=== PATIENT | female | born 1995 | race Caucasian/White ===

== ENCOUNTER 2018-02-15 18:04 | Emergency (ER) | payer SELFPAY ==
--- NOTE | 2018-02-15 18:40 | EDPHYS ---
Physician Documentation [facility] Name: Ernestina Sadler Age: 22 yrs Sex: Female : 1995 Arrival Date: 02/15/2018 Time: 18:08 Bed 27 Private MD: None, None ED Physician Yovanny Hay HPI: 02/15 18:35 This 22 yrs old Female presents to ER via Ambulatory with complaints of Flu savannah Symptoms. 18:35 This 22 yrs old Female presents to ER via Ambulatory with complaints of Flu savannah Symptoms. 18:35 The patient has shortness of breath with light activity. Onset: The symptoms/episode savannah began/occurred 2 day(s) ago. Duration: The symptoms are continuous, and are steadily getting worse. The patient's shortness of breath is aggravated by coughing, is alleviated by elevating head, rest. Severity of symptoms: At their worst the symptoms were mild in the emergency department the symptoms are unchanged. The patient reports fever, that was measured at 102 degrees Fahrenheit. 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 - Social history:: Smoking status: Patient uses tobacco products, denies chronic smoking, but will smoke occasionally. - Ebola Screening: : No symptoms or risks identified at this time. - Family history:: not pertinent. ROS: 18:35 Constitutional: Negative for fever, chills, and weight loss, Eyes: Negative for injury, savannah pain, redness, and discharge, ENT: Negative for injury, pain, and discharge, Neck: Negative for injury, pain, and swelling, Cardiovascular: Negative for chest pain, palpitations, and edema, Abdomen/GI: Negative for abdominal pain, nausea, vomiting, diarrhea, and constipation, Back: Negative for injury and pain, : Negative for injury, bleeding, discharge, and swelling, MS/Extremity: Negative for injury and deformity, Skin: Negative for injury, rash, and discoloration, Neuro: Negative for headache, weakness, numbness, tingling, and seizure, Psych: Negative for depression, anxiety, suicide ideation, homicidal ideation, and hallucinations, Allergy/Immunology: Negative for hives, rash, and allergies, Endocrine: Negative for neck swelling, polydipsia, polyuria, polyphagia, and marked weight changes, Hematologic/Lymphatic: Negative for swollen nodes, abnormal bleeding, and unusual bruising. 18:35 Respiratory: Positive for cough, with no reported sputum. Exam: 18:35 Head/Face: Normocephalic, atraumatic. Eyes: Pupils equal round and reactive to light, savannah extra-ocular motions intact. Lids and lashes normal. Conjunctiva and sclera are non-icteric and not injected. Cornea within normal limits. Periorbital areas with no swelling, redness, or edema. ENT: Nares patent. No nasal discharge, no septal abnormalities noted. Tympanic membranes are normal and external auditory canals are clear. Oropharynx with no redness, swelling, or masses, exudates, or evidence of obstruction, uvula midline. Mucous membranes moist. Neck: Trachea midline, no thyromegaly or masses palpated, and no cervical lymphadenopathy. Supple, full range of motion without nuchal rigidity, or vertebral point tenderness. No Meningismus. Chest/axilla: Normal chest wall appearance and motion. Nontender with no deformity. No lesions are appreciated. Cardiovascular: Regular rate and rhythm with a normal S1 and S2. No gallops, murmurs, or rubs. Normal PMI, no JVD. No pulse deficits. Respiratory: Lungs have equal breath sounds bilaterally, clear to auscultation and percussion. No rales, rhonchi or wheezes noted. No increased work of breathing, no retractions or nasal flaring. Abdomen/GI: Soft, non-tender, with normal bowel sounds. No distension or tympany. No guarding or rebound. No evidence of tenderness throughout. Back: No spinal tenderness. No costovertebral tenderness. Full range of motion. Skin: Warm, dry with normal turgor. Normal color with no rashes, no lesions, and no evidence of cellulitis. MS/ Extremity: Pulses equal, no cyanosis. Neurovascular intact. Full, normal range of motion. Neuro: Awake and alert, GCS 15, oriented to person, place, time, and situation. Cranial nerves II-XII grossly intact. Motor strength 5/5 in all extremities. Sensory grossly intact. Cerebellar exam normal. Normal gait. Psych: Awake, alert, with orientation to person, place and time. Behavior, mood, and affect are within normal limits. 18:35 Constitutional: The patient appears febrile. 18:35 Neck: ROM/movement: is normal, no acute changes, Meningeal signs: are not present, Kernig's sign is negative, Brudzinski's sign is negative. 18:35 Respiratory: the patient does not display signs of respiratory distress, Respirations: normal, Breath sounds: are clear throughout. Vital Signs: 18:35 BP 125 / 90; Pulse 88; Resp 17; Temp 98.3; Pulse Ox 99% ; Weight 76.2 kg; Height 5 ft. kr2 4 in. (162.56 cm); Pain 3/10; 18:35 Body Mass Index 28.84 (76.20 kg, 162.56 cm) kr2 MDM: 18:20 Patient medically screened. [facility] 18:38 Data reviewed: vital signs, nurses notes. [facility] Administered Medications: 18:50 Drug: Zithromax 500 mg Route: PO; kr2 18:55 Follow up: Response: Medication administered at discharge. kr2 18:50 Drug: Tamiflu 75 mg Route: PO; kr2 19:02 Follow up: Response: Medication administered at discharge. 2 Disposition: 02/15/18 18:39 Discharged to Home. Impression: Fever, unspecified, Acute upper respiratory infection, unspecified. - Condition is Stable. - Discharge Instructions: Fever, Adult, Upper Respiratory Infection, Adult, Cool Mist Vaporizer, Cough, Adult, [id number], Cough, Adult. - Prescriptions for Bromfed DM 2- 30-10 mg/5 mL Oral syrup - take 10 milliliter by ORAL route every 4 hours; 160 milliliter. Zithromax Z- Tj 250 mg Oral Tablet - take 1 tablet by ORAL route as directed for 5 days Day 1 - take two (2) tablets one time. Day 2, 3, 4 , 5 take one (1) tablet once daily.; 6 tablet. Tamiflu 75 mg Oral Capsule - take 1 tablet by ORAL route every 12 hours for 5 days; 10 tablet. - Medication Reconciliation Form, Thank You Letter, Antibiotic Education, Prescription Opioid Use, Work release form form. - Follow up: Yovanny Hay MD; When: 2 - 3 days; Reason: Recheck today's complaints, Continuance of care, Re-evaluation by your physician. - Problem is new. - Symptoms have improved. Signatures: Dispatcher [employer] Yovanny Russo MD MD cha Reaves, Karey, RN RN kr2 Corrections: (The following items were deleted from the chart) 19:02 18:39 02/15/2018 18:39 Discharged to Home. Impression: Fever, unspecified; Acute upper kr2 respiratory infection, unspecified. Condition is Stable. Forms are Medication Reconciliation Form, Thank You Letter, Antibiotic Education, Prescription Opioid Use. Follow up: Dr. Yovanny Hay; When: 2 - 3 days; Reason: Recheck today's complaints, Continuance of care, Re-evaluation by your physician. Problem is new. Symptoms have improved. savannah
--- NOTE | 2018-02-15 18:40 | ER ---
Nurse's Notes [facility] Name: Ernestina Sadler Age: 22 yrs Sex: Female : 1995 Arrival Date: 02/15/2018 Time: 18:08 Bed 27 Private MD: None, None Diagnosis: Fever, unspecified;Acute upper respiratory infection, unspecified Presentation: 02/15 18:32 Presenting complaint: Patient states: she woke up with body aches, ear ache, sore kr2 throat, runny nose and cough this morning. Transition of care: patient was not received from another setting of care. Onset of symptoms was February 14, 2018. Risk Assessment: Do you want to hurt yourself or someone else? Patient reports no desire to harm self or others. Initial Sepsis Screen: Does the patient meet any 2 criteria? No. Patient's initial sepsis screen is negative. Does the patient have a suspected source of infection? No. Patient's initial sepsis screen is negative. Care prior to arrival: None. 18:32 Method Of Arrival: Ambulatory [facility] 18:32 Acuity: JOHNNY 5 kr2 Triage Assessment: 18:37 General: Appears in no apparent distress. uncomfortable, well groomed, well developed, kr2 well nourished, Behavior is calm, cooperative, appropriate for age. Pain: Complains of pain in right ear, throat Pain currently is 3 out of 10 on a pain scale. Quality of pain is described as aching, tender, Is continuous, Alleviated by nothing. EENT: Nares with drainage noted bilaterally Oral mucosa is moist. Reports pain in right ear. Neuro: Level of Consciousness is awake, alert, obeys commands, Oriented to person, place, time, situation, Appropriate for age. Cardiovascular: Capillary refill < 3 seconds in bilateral fingers Patient's skin is warm and dry. Respiratory: Reports cough that is non-productive, Airway is patent Respiratory effort is even, unlabored, Respiratory pattern is regular, symmetrical. GI: Patient currently denies nausea. : Denies burning with urination. Derm: Skin is intact, is healthy with good turgor, Skin is pink, warm \T\ dry. Musculoskeletal: Circulation, motion, and sensation intact. 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 - Social history:: Smoking status: Patient uses tobacco products, denies chronic smoking, but will smoke occasionally. - Ebola Screening: : No symptoms or risks identified at this time. - Family history:: not pertinent. Screenin:35 Abuse screen: Denies threats or abuse. Denies injuries from another. Nutritional kr2 screening: No deficits noted. Tuberculosis screening: No symptoms or risk factors identified. Fall Risk None identified. Assessment: 18:42 Reassessment: See triage assessment. Per Dr. Hay, dylan flu swab, lab notified kr2 and no swab done. Vital Signs: 18:35 BP 125 / 90; Pulse 88; Resp 17; Temp 98.3; Pulse Ox 99% ; Weight 76.2 kg; Height 5 ft. kr2 4 in. (162.56 cm); Pain 3/10; 18:35 Body Mass Index 28.84 (76.20 kg, 162.56 cm) kr2 ED Course: 18:08 Patient arrived in ED. mr 18:09 None, None is Private Physician. mr 18:20 Yovanny Hay MD is Attending Physician. savannah 18:23 Cass Weems, JANICE is Primary Nurse. kr2 18:34 Triage completed. kr2 18:38 Yovanny Hay MD is Referral Physician. savannah 18:40 Arm band placed on. kr2 18:40 Patient has correct armband on for positive identification. Bed in low position. Call kr2 light in reach. Side rails up X 1. Door closed. Head of bed elevated. 18:40 No provider procedures requiring assistance completed. Patient did not have IV access kr2 during this emergency room visit. Administered Medications: 18:50 Drug: Zithromax 500 mg Route: PO; kr2 18:55 Follow up: Response: Medication administered at discharge. kr2 18:50 Drug: Tamiflu 75 mg Route: PO; kr2 19:02 Follow up: Response: Medication administered at discharge. kr2 Outcome: 18:39 Discharge ordered by . savannah 18:41 Condition: good kr2 18:53 Discharged to home ambulatory. kr2 18:53 Discharge instructions given to patient, Instructed on discharge instructions, follow up and referral plans. medication usage, Demonstrated understanding of instructions, follow-up care, medications, Prescriptions given X 3. 19:02 Patient left the ED. kr2 Signatures: Yovanny Hay MD MD cha Rivera, Mary mr Reaves, Karey, RN RN kr2 Corrections: (The following items were deleted from the chart) 19:02 18:54 Response: No adverse reaction; Medication administered at discharge. kr2 kr2
[2018-02-15] MEDS ORDERED: OSELTAMIVIR 75 MG CAP ONE (18:52)
[2018-02-15] MEDS ORDERED: AZITHROMYCIN 250 MG TAB ONE (18:53)
== END 2018-02-15 19:02 | disposition home or self-care (01) ==
LOC: ER 18:04
DX: J06.9 Acute upper respiratory infection, unspecified (principal); Z72.0 Tobacco use
CPT/HCPCS: 99283

== ENCOUNTER 2018-06-25 17:40 | Emergency (ER) | payer SELFPAY ==
--- NOTE | 2018-06-25 18:59 | ER ---
Nurse's Notes [facility] Name: Ernestina Sadler Age: 22 yrs Sex: Female : 1995 Arrival Date: 06/25/2018 Time: 17:53 Bed Treatment Private MD: Diagnosis: Acute upper respiratory infection, unspecified Presentation: 06/25 17:53 Presenting complaint: Patient states: erlin ear pain, cough, congestion, yellow mucous, ch started 4-5 days ago, sore throat as well. Transition of care: patient was not received from another setting of care. Onset of symptoms was June 20, 2018. Risk Assessment: Do you want to hurt yourself or someone else?. Initial Sepsis Screen: Does the patient meet any 2 criteria? No. Patient's initial sepsis screen is negative. Does the patient have a suspected source of infection? No. Patient's initial sepsis screen is negative. Care prior to arrival: Medication(s) given: amoxicillin. 17:53 Method Of Arrival: Ambulatory 17:53 Acuity: JOHNNY 4 Triage Assessment: 17:54 General: Appears in no apparent distress. comfortable, Behavior is calm, cooperative, ch appropriate for age. Pain: Complains of pain in throat Pain currently is 7 out of 10 on a pain scale. EENT: Reports nasal congestion nasal discharge pain in left ear and right ear when swallowing. Respiratory: Airway is patent Respiratory effort is even, unlabored. 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 - Social history:: Smoking status: Patient uses tobacco products, denies chronic smoking, but will smoke occasionally, Patient uses alcohol, weekly. Patient/guardian denies using street drugs. - Ebola Screening: : Patient negative for fever greater than or equal to 101.5 degrees Fahrenheit, and additional compatible Ebola Virus Disease symptoms Patient denies exposure to infectious person Patient denies travel to an Ebola-affected area in the 21 days before illness onset No symptoms or risks identified at this time. Screenin:14 Abuse screen: Denies threats or abuse. Denies injuries from another. Nutritional ss screening: No deficits noted. Tuberculosis screening: Never had TB. Fall Risk None identified. Assessment: 18:18 General: Appears in no apparent distress. comfortable, Behavior is calm, cooperative. ss Pain: Complains of pain in right ear and left ear and throat Pain currently is 7 out of 10 on a pain scale. Quality of pain is described as aching, tender. Neuro: Level of Consciousness is awake, alert, obeys commands, Oriented to person, place, time, situation. Cardiovascular: Capillary refill < 3 seconds is brisk in bilateral fingers. Respiratory: Airway is patent Respiratory effort is even, unlabored, Respiratory pattern is regular, symmetrical. GI: Patient currently denies diarrhea, nausea, vomiting. EENT: Nares are clear Oral mucosa is moist. Throat is clear. Derm: Skin is intact, is healthy with good turgor, Skin is dry, Skin is pink, warm \T\ dry. normal. Musculoskeletal: Circulation, motion, and sensation intact. Range of motion: intact in all extremities. Vital Signs: 17:54 BP 133 / 85; Pulse 71; Resp 16; Temp 98.3; Pulse Ox 99% on R/A; Weight 83.91 kg; Height ch 5 ft. 4 in. (162.56 cm); Pain 7/10; 17:54 Body Mass Index 31.75 (83.91 kg, 162.56 cm) ED Course: 17:53 Patient arrived in ED. 17:54 Triage completed. 17:54 Arm band placed on left wrist. Patient placed in waiting room. flu and strep. 17:56 Topher Mcconnell PA is PHCP. [facility] 17:56 Yovanny Hay MD is Attending Physician. jr8 18:14 Patient has correct armband on for positive identification. Bed in low position. Call ss light in reach. 18:14 No provider procedures requiring assistance completed. Patient did not have IV access ss during this emergency room visit. 19:31 Lexi Peterson, JANICE is Primary Nurse. ss Administered Medications: No medications were administered Outcome: 18:58 Discharge ordered by . kathy 19:31 Discharged to home ambulatory. ss 19:31 Condition: good 19:31 Discharge instructions given to patient, family, Instructed on discharge instructions, follow up and referral plans. medication usage, Demonstrated understanding of instructions, follow-up care, medications, Prescriptions given X 3. 19:32 Patient left the ED. Signatures: Xiao Varela RN RN Lexi Peterson RN RN Topher Mcconnell PA PA jr8 Corrections: (The following items were deleted from the chart) 17:54 17:53 Care prior to arrival: None. [facility]
--- NOTE | 2018-06-25 18:59 | EDPHYS ---
Physician Documentation [facility] Name: Ernestina Sadler Age: 22 yrs Sex: Female : 1995 Arrival Date: 06/25/2018 Time: 17:53 Bed Treatment Private MD: ED Physician Yovanny Hay HPI: 06/25 18:55 This 22 yrs old Female presents to ER via Ambulatory with complaints of Ear jr8 Pain. 18:55 Patient stated that for the past 5 days she has had sinus congestion, cough, body jr8 aches, ear pain, soar throat. Not getting any better with OTC medicine . Severity of symptoms: At their worst the symptoms were moderate in the emergency department the symptoms are unchanged. The patient has not experienced similar symptoms in the past. The patient has not recently seen a physician. 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 - Social history:: Smoking status: Patient uses tobacco products, denies chronic smoking, but will smoke occasionally, Patient uses alcohol, weekly. Patient/guardian denies using street drugs. - Ebola Screening: : Patient negative for fever greater than or equal to 101.5 degrees Fahrenheit, and additional compatible Ebola Virus Disease symptoms Patient denies exposure to infectious person Patient denies travel to an Ebola-affected area in the 21 days before illness onset No symptoms or risks identified at this time. ROS: 18:55 Eyes: Negative for injury, pain, redness, and discharge, Neck: Negative for injury, jr8 pain, and swelling, Cardiovascular: Negative for chest pain, palpitations, and edema, Abdomen/GI: Negative for abdominal pain, nausea, vomiting, diarrhea, and constipation, Back: Negative for injury and pain, MS/Extremity: Negative for injury and deformity, Skin: Negative for injury, rash, and discoloration, Neuro: Negative for headache, weakness, numbness, tingling, and seizure. 18:55 Constitutional: Positive for body aches, chills. 18:55 ENT: Positive for rhinorrhea, sinus congestion, sinus pain, sore throat. 18:55 Respiratory: Positive for cough, Negative for dyspnea on exertion, shortness of breath, sputum production, wheezing. Exam: 18:55 Eyes: Pupils equal round and reactive to light, extra-ocular motions intact. Lids and jr8 lashes normal. Conjunctiva and sclera are non-icteric and not injected. Cornea within normal limits. Periorbital areas with no swelling, redness, or edema. ENT: Nares patent. Mild erythema to bilateral turbinates with clear rhinorrhea. No septal abnormalities noted. Tympanic membranes are normal and external auditory canals are clear. Oropharynx with no redness, swelling, or masses, exudates, or evidence of obstruction, uvula midline. Mucous membranes moist. Neck: Trachea midline, no thyromegaly or masses palpated, and no cervical lymphadenopathy. Supple, full range of motion without nuchal rigidity, or vertebral point tenderness. No Meningismus. Cardiovascular: Regular rate and rhythm with a normal S1 and S2. No gallops, murmurs, or rubs. Normal PMI, no JVD. No pulse deficits. Respiratory: Lungs have equal breath sounds bilaterally, clear to auscultation and percussion. No rales, rhonchi or wheezes noted. No increased work of breathing, no retractions or nasal flaring. Abdomen/GI: Soft, non-tender, with normal bowel sounds. No distension or tympany. No guarding or rebound. No evidence of tenderness throughout. Back: No spinal tenderness. No costovertebral tenderness. Full range of motion. Skin: Warm, dry with normal turgor. Normal color with no rashes, no lesions, and no evidence of cellulitis. MS/ Extremity: Pulses equal, no cyanosis. Neurovascular intact. Full, normal range of motion. Neuro: Awake and alert, GCS 15, oriented to person, place, time, and situation. Cranial nerves II-XII grossly intact. Motor strength 5/5 in all extremities. Sensory grossly intact. Cerebellar exam normal. Normal gait. Vital Signs: 17:54 BP 133 / 85; Pulse 71; Resp 16; Temp 98.3; Pulse Ox 99% on R/A; Weight 83.91 kg; Height ch 5 ft. 4 in. (162.56 cm); Pain 7/10; 17:54 Body Mass Index 31.75 (83.91 kg, 162.56 cm) MDM: 18:03 Patient medically screened. [facility] 18:55 Data reviewed: vital signs, nurses notes, lab test result(s), and as a result, I will jr8 discharge patient. Data interpreted: Pulse oximetry: on room air is 99 %. Interpretation: normal. Counseling: I had a detailed discussion with the patient and/or guardian regarding: the historical points, exam findings, and any diagnostic results supporting the discharge/admit diagnosis, lab results, the need for outpatient follow up, a family practitioner, to return to the emergency department if symptoms worsen or persist or if there are any questions or concerns that arise at home. 06/25 17:56 Order name: Flu; Complete Time: 18:55 06/25 17:56 Order name: Strep; Complete Time: 18:55 06/25 18:54 Order name: Throat Culture EDMS Administered Medications: No medications were administered Disposition: 06/25/18 18:58 Discharged to Home. Impression: Acute upper respiratory infection, unspecified. - Condition is Stable. - Discharge Instructions: Upper Respiratory Infection, Adult. - Prescriptions for Prednisone 20 mg Oral Tablet - take 1 tablet by ORAL route once daily for 5 days; 5 tablet. Zithromax Z- Tj 250 mg Oral Tablet - take 1 tablet by ORAL route as directed for 5 days Day 1 - take two (2) tablets one time. Day 2, 3, 4 , 5 take one (1) tablet once daily.; 6 tablet. Guaifenesin AC 10- 100 mg/5 mL Oral Liquid - take 10 milliliter by ORAL route every 4 hours As needed; 240 milliliter. - Work release form, Medication Reconciliation Form, Thank You Letter, Antibiotic Education, Prescription Opioid Use form. - Follow up: Private Physician; When: 5 - 6 days; Reason: Recheck today's complaints, Continuance of care, Re-evaluation by your physician. - Problem is new. - Symptoms have improved. Addendum: 06/27/2018 09:28 Co-signature as Attending Physician, Yovanny Hay MD I agree with the assessment and c mcmullen plan of care. Signatures: Dispatcher [employer] EDXiao Rojo RN RN ch Anderson, Corey, MD MD cha Smirch, Shelby, RN RN Topher Mcconnell PA PA jr8 Corrections: (The following items were deleted from the chart) 06/25 19:32 18:58 06/25/2018 18:58 Discharged to Home. Impression: Acute upper respiratory ss infection, unspecified. Condition is Stable. Forms are Medication Reconciliation Form, Thank You Letter, Antibiotic Education, Prescription Opioid Use. Follow up: Private Physician; When: 5 - 6 days; Reason: Recheck today's complaints, Continuance of care, Re-evaluation by your physician. Problem is new. Symptoms have improved. jr8
== END 2018-06-25 19:32 | disposition home or self-care (01) ==
LOC: ER 17:40
DX: J06.9 Acute upper respiratory infection, unspecified (principal); Z91.040 Latex allergy status; Z91.048 Other nonmedicinal substance allergy status
CPT/HCPCS: 87070; 87081; 87804; 99282

== ENCOUNTER 2020-03-24 12:40 | Emergency (ER) | payer SELFPAY ==
[2020-03-24] MEDS ORDERED: BENZONATATE 100 MG CAP PO ONE (14:22)
--- NOTE | 2020-03-24 14:46 | EDPHYS ---
Physician Documentation [facility] Name: Ernestina Sadler Age: 24 yrs Sex: Female : 1995 Arrival Date: 03/24/2020 Time: 12:44 Bed 5 Private MD: ED Physician Jay Emanuel HPI: 03/24 13:30 This 24 yrs old Female presents to ER via Ambulatory with complaints of Sore cp Throat, Cough. 13:30 The patient presents with sore throat. Onset: The symptoms/episode began/occurred cp yesterday. Severity of symptoms: in the emergency department the symptoms are unchanged. Associated signs and symptoms: Pertinent positives: cough, Pertinent negatives diarrhea, dysphagia, fever, vomiting. 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 - Social history:: Smoking status: Patient denies any tobacco usage or history of. ROS: 13:35 Constitutional: Negative for fever, poor PO intake. cp 13:35 Eyes: Negative for injury, pain, redness, and discharge. cp 13:35 ENT: Positive for ear pain, sore throat, Negative for drainage from ear(s), difficulty swallowing, difficulty handling secretions. 13:35 Respiratory: Positive for cough, Negative for shortness of breath, wheezing. 13:35 Abdomen/GI: Negative for abdominal pain, nausea, vomiting, and diarrhea. 13:35 Neuro: Negative for headache. 13:35 All other systems are negative. Exam: 13:40 Constitutional: The patient appears in no acute distress, alert, awake, non-toxic, well cp developed, well nourished. 13:40 Head/Face: Normocephalic, atraumatic. cp 13:40 Eyes: Periorbital structures: appear normal, Conjunctiva: normal, no exudate, no injection, Lids and lashes: appear normal, bilaterally. 13:40 ENT: External ear(s): are unremarkable, Ear canal(s): are normal, clear, TM's: dullness, bilaterally, Nose: is normal, Mouth: Lips: moist, Oral mucosa: moist, Posterior pharynx: Airway: no evidence of obstruction, patent, Tonsils: no enlargement, no exudate, swelling, is not appreciated, erythema, that is mild, exudate, is not appreciated. 13:40 Neck: ROM/movement: is normal, is supple, no meningismus, no nuchal rigidity, Lymph nodes: no appreciated lymphadenopathy. 13:40 Chest/axilla: Inspection: normal. 13:40 Cardiovascular: Rate: normal. 13:40 Respiratory: the patient does not display signs of respiratory distress, Respirations: normal, no use of accessory muscles, no retractions, labored breathing, is not present, Breath sounds: decreased breath sounds, are not appreciated, stridor, wheezing: is not appreciated. 13:40 Abdomen/GI: Exam negative for discomfort, distension, guarding, Inspection: abdomen appears normal. Vital Signs: 13:14 BP 113 / 77; Pulse 88; Resp 16 S; Temp 97.9(TE); Pulse Ox 100% on R/A; Weight 81.65 kg ca1 (R); Height 5 ft. 4 in. (162.56 cm) (R); Pain 4/10; 14:05 BP 124 / 81; Pulse 83; Resp 16 S; Pulse Ox 100% on R/A; ca1 13:14 Body Mass Index 30.90 (81.65 kg, 162.56 cm) ca1 MDM: 14:00 Differential diagnosis: apthous stomatitis, group A strep tonsillitis, peritonsillar cp abscess pharyngitis, retropharyngeal abcess. 14:44 Patient medically screened. cp 14:45 Data reviewed: vital signs, nurses notes, lab test result(s), and as a result, I will cp discharge patient. 14:45 Counseling: I had a detailed discussion with the patient and/or guardian regarding: the cp historical points, exam findings, and any diagnostic results supporting the discharge/admit diagnosis, lab results, to return to the emergency department if symptoms worsen or persist or if there are any questions or concerns that arise at home. 03/24 13:21 Order name: Flu ca1 03/24 13:21 Order name: Strep ca1 03/24 13:21 Order name: COVID-19 ca1 03/24 14:27 Order name: Throat Culture EDMS Administered Medications: 14:09 Drug: Tessalon Perle 200 mg Route: PO; ca1 14:32 Follow up: Response: No adverse reaction sv Disposition: 03/25 09:31 Co-signature as Attending Physician, Jay Emanuel MD. rn Disposition: 03/24/20 14:45 Discharged to Home. Impression: Acute upper respiratory infection, unspecified. - Condition is Stable. - Discharge Instructions: Upper Respiratory Infection, Adult, COVID-19. - Prescriptions for Tessalon Perles 100 mg Oral Capsule - take 2 capsule by ORAL route every 8 hours As needed; 20 capsule. - Work release form, Medication Reconciliation Form, Thank You Letter, Antibiotic Education, Prescription Opioid Use form. - Follow up: Private Physician; When: 2 - 3 days; Reason: Worsening of condition. - Problem is new. - Symptoms have improved. Signatures: Dispatcher [employer] EDNV Shauna Hernandez RN RN Jay Mai MD MD rn Page, Corey, PA PA cp Tracy Colvin RN RN ca1 Corrections: (The following items were deleted from the chart) 03/24 14:55 14:45 03/24/2020 14:45 Discharged to Home. Impression: Acute upper respiratory sv infection, unspecified. Condition is Stable. Forms are Medication Reconciliation Form, Thank You Letter, Antibiotic Education, Prescription Opioid Use. Follow up: Private Physician; When: 2 - 3 days; Reason: Worsening of condition. Problem is new. Symptoms have improved. cp
--- NOTE | 2020-03-24 14:46 | ER ---
Nurse's Notes [facility] Name: Ernestina Sadler Age: 24 yrs Sex: Female : 1995 Arrival Date: 03/24/2020 Time: 12:44 Bed 5 Private MD: Diagnosis: Acute upper respiratory infection, unspecified Presentation: 03/24 13:14 Chief complaint: Patient states: Started coughing today, throat started hurting ca1 yesterday. When I cough, it hurts my chest and throat, I almost throw up from coughing at work today. Denies fever. Coronavirus screen: Client denies travel out of the [place] in the last 14 days. cough unrelated to allergies, shortness of breath, Client presents with at least one sign or symptom that may indicate coronavirus-19. Standard/surgical mask placed on the client. Provider contacted for isolation considerations. The client reports previous COVID testing was negative. Date of collection: December 2019. Ebola Screen: Patient negative for fever greater than or equal to 101.5 degrees Fahrenheit, and additional compatible Ebola Virus Disease symptoms Patient denies exposure to infectious person. Patient denies travel to an Ebola-affected area in the 21 days before illness onset. No symptoms or risks identified at this time. Initial Sepsis Screen: Does the patient meet any 2 criteria? No. Patient's initial sepsis screen is negative. Does the patient have a suspected source of infection? No. Patient's initial sepsis screen is negative. Risk Assessment: Do you want to hurt yourself or someone else? Patient reports no desire to harm self or others. Onset of symptoms was March 24, 2020. 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 - Social history:: Smoking status: Patient denies any tobacco usage or history of. Screenin:01 Abuse screen: Denies threats or abuse. Denies injuries from another. Nutritional ca1 screening: No deficits noted. Tuberculosis screening: No symptoms or risk factors identified. Fall Risk None identified. Assessment: 14:01 Reassessment: Pt seen in triage with ANU Arellano. General: Appears in no apparent ca1 distress. comfortable, Behavior is calm, cooperative, appropriate for age. Pain: Complains of pain in throat. Neuro: Level of Consciousness is awake, alert, obeys commands, Oriented to person, place, time, situation. Cardiovascular: Heart tones S1 S2 present Capillary refill < 3 seconds Patient's skin is warm and dry. Respiratory: Airway is patent Respiratory effort is even, unlabored, Respiratory pattern is regular, symmetrical, Breath sounds are clear bilaterally. EENT: Throat is clear is pink. Derm: Skin is intact, is healthy with good turgor, Skin is pink, warm \T\ dry. Musculoskeletal: Circulation, motion, and sensation intact. Capillary refill < 3 seconds. 14:32 Reassessment: Patient appears in no apparent distress at this time. No changes from sv previously documented assessment. Patient and/or family updated on plan of care and expected duration. Pain level reassessed. Patient is alert, oriented x 3, equal unlabored respirations, skin warm/dry/pink. Vital Signs: 13:14 BP 113 / 77; Pulse 88; Resp 16 S; Temp 97.9(TE); Pulse Ox 100% on R/A; Weight 81.65 kg ca1 (R); Height 5 ft. 4 in. (162.56 cm) (R); Pain 4/10; 14:05 BP 124 / 81; Pulse 83; Resp 16 S; Pulse Ox 100% on R/A; ca1 13:14 Body Mass Index 30.90 (81.65 kg, 162.56 cm) ca1 ED Course: 12:44 Patient arrived in ED. ds1 13:16 Triage completed. ca1 13:16 Arm band placed on right wrist. ca1 13:30 Yovanyn Andino PA is PHCP. cp 13:32 Yovanny Andino PA is PHCP. cp 13:32 Jay Emanuel MD is Attending Physician. cp 13:32 Flu Sent. ca1 13:32 Strep Sent. ca1 13:32 COVID-19 Sent. ca1 14:01 Patient has correct armband on for positive identification. ca1 14:01 No provider procedures requiring assistance completed. Patient did not have IV access ca1 during this emergency room visit. 14:29 Shauna Hernandez, RN is Primary Nurse. sv 14:30 Throat Culture Sent. sv Administered Medications: 14:09 Drug: Tessalon Perle 200 mg Route: PO; ca1 14:32 Follow up: Response: No adverse reaction sv Outcome: 14:45 Discharge ordered by MD. cp 14:55 Patient left the ED. sv 14:55 Discharged to home ambulatory. sv 14:55 Condition: stable 14:55 Discharge instructions given to patient, Instructed on discharge instructions, follow up and referral plans. medication usage, Demonstrated understanding of instructions, follow-up care, medications, Prescriptions given X 1. Addendum: 03/26/2020 17:42 Addendum: COVID-19 Result: Negative result given to RN to notify pt. Notified pt of a a5 negative COVID 19 swab results. Pt advised that even with a negative test result they should remain in isolation until symptom free for 3 days without medication. Pt also advised to return to the ED for worsening symptoms. Signatures: hSauna Hernandez, RN RN Solange Triplett ds1 Lora Armstrong, RN RN aa5 Yovanny Andino PA PA Tracy Millard RN RN ca1
[2020-03-28 10:21] VITALS: TEMP 97.9; O2SAT 100
[2020-03-28 10:23] VITALS: BP 124/81
== END 2020-03-24 14:55 | disposition home or self-care (01) ==
LOC: ER 12:40
DX: J06.9 Acute upper respiratory infection, unspecified (principal); Z20.828 Contact with and (suspected) exposure to other viral communicable diseases; Z91.040 Latex allergy status; Z91.048 Other nonmedicinal substance allergy status
CPT/HCPCS: 87070; 87081; 87804; 99283; U0002

== ENCOUNTER 2020-05-03 11:57 | Emergency (ER) | payer SELFPAY ==
--- NOTE | 2020-05-03 15:09 | RAD REPORT ---
EXAM DESCRIPTION: RAD - Chest Single View - 05/03/2020 2:59 pm CLINICAL HISTORY: Pain;Cough Chest pain. COMPARISON: No comparisons FINDINGS: Portable technique limits examination quality. The lungs are grossly clear. The heart is normal in size. No displaced fractures. IMPRESSION: No acute intrathoracic process suspected.
--- NOTE | 2020-05-03 15:14 | ER ---
Nurse's Notes [facility] Name: Ernestina Sadler Age: 24 yrs Sex: Female : 1995 Arrival Date: 05/03/2020 Time: 12:02 Bed 24 Private MD: Diagnosis: Pleurisy Presentation: 05/03 12:15 Chief complaint: Patient states: Left mid back pain with deep inspiration for 1 week. ll1 Cough since March, she came here for. Covid negative last visit. Coronavirus screen: Client denies travel out of the [place] in the last 14 days. cough unrelated to allergies, Client presents with at least one sign or symptom that may indicate coronavirus-19. Standard/surgical mask placed on the client. Ebola Screen: Patient denies travel to an Ebola-affected area in the 21 days before illness onset. Initial Sepsis Screen: Does the patient meet any 2 criteria? No. Patient's initial sepsis screen is negative. Does the patient have a suspected source of infection? Yes: Productive cough/pneumonia. Risk Assessment: Do you want to hurt yourself or someone else? Patient reports no desire to harm self or others. Onset of symptoms was March 23, 2020. 12:15 Method Of Arrival: Ambulatory ll1 12:15 Acuity: JOHNNY 4 ll1 Triage Assessment: 12:17 General: Appears in no apparent distress. Behavior is calm, cooperative, appropriate ll1 for age. General: intermittent pain to left mid back with deep inspiration, no pain at this time. . Pain: Denies pain. Neuro: No deficits noted. Cardiovascular: No deficits noted. Respiratory: Reports pain with respiration Airway is patent Trachea midline Respiratory effort is even, unlabored, Respiratory pattern is regular, symmetrical, the patient has mild shortness of breath. Musculoskeletal: Circulation, motion, and sensation intact. Capillary refill < 3 seconds, Range of motion: intact in all extremities, Reports pain in L mid back with inspiration. Historical: - Allergies: 12:15 Latex, Natural Rubber; ll1 - PMHx: 12:15 None; ll1 - PSHx: 12:15 None; ll1 - Immunization history:: Flu vaccine is not up to date. - Social history:: Smoking status: Patient denies any tobacco usage or history of. Screenin:00 Abuse screen: Denies threats or abuse. Nutritional screening: No deficits noted. vg1 Tuberculosis screening: No symptoms or risk factors identified. Fall Risk None identified. Assessment: 13:55 General: Appears in no apparent distress. comfortable, Behavior is calm, cooperative. vg1 Pain: Denies pain. Complains of pain in Left mid back. Pain currently is 0 out of 10 on a pain scale. at worst was 8 out of 10 on a pain scale. Is intermittent. Neuro: Level of Consciousness is awake, alert, obeys commands, Oriented to person, place, time, situation. Cardiovascular: Patient's skin is warm and dry. Respiratory: Airway is patent Respiratory effort is even, unlabored, Breath sounds are clear bilaterally. GI: Abdomen is flat, Patient currently denies constipation, diarrhea, nausea, vomiting. : No signs and/or symptoms were reported regarding the genitourinary system. EENT: No signs and/or symptoms were reported regarding the EENT system. Derm: Skin is intact, is healthy with good turgor. Musculoskeletal: Circulation, motion, and sensation intact. 15:00 Reassessment: Patient appears in no apparent distress at this time. Patient and/or vg1 family updated on plan of care and expected duration. Pain level reassessed. Patient is alert, oriented x 3, equal unlabored respirations, skin warm/dry/pink. Patient denies pain at this time. Vital Signs: 12:15 BP 134 / 86; Pulse 86; Resp 16; Temp 98.4; Pulse Ox 99% ; Weight 72.57 kg; Height 5 ft. ll1 4 in. (162.56 cm); Pain 9/10; 14:00 BP 118 / 86; Pulse 63; Resp 16; Pulse Ox 98% on R/A; vg1 15:00 BP 108 / 88; Pulse 70; Resp 14; Pulse Ox 99% on R/A; vg1 12:15 Body Mass Index 27.46 (72.57 kg, 162.56 cm) ll1 ED Course: 12:02 Patient arrived in ED. rg4 12:14 Arm band placed on. ll1 12:17 Triage completed. ll1 13:51 Talita Connelly FNP-C is [facility]. kb 13:51 Jerome Sampson MD is Attending Physician. kb 13:52 Laura Martinez RN is Primary Nurse. vg1 14:01 Patient has correct armband on for positive identification. Bed in low position. Call vg1 light in reach. 14:48 Xray at bedside. vg1 14:50 Xray leaving bedside. vg1 14:59 Chest Single View XRAY In Process Unspecified. EDMS 15:26 No provider procedures requiring assistance completed. Patient did not have IV access vg1 during this emergency room visit. Administered Medications: No medications were administered Outcome: 15:13 Discharge ordered by . kiet 15:26 Discharged to home ambulatory. vg1 15:26 Condition: stable 15:26 Discharge instructions given to patient, Instructed on discharge instructions, follow up and referral plans. medication usage, Demonstrated understanding of instructions, follow-up care, medications, Prescriptions given X 1. 15:27 Patient left the ED. vg1 Signatures: Dispatcher [employer] EDTX Talita Connelly, BALWINDER CROUCH-Marilyn Casillas rg4 Laura Martinez, RN RN vg1 Gopi Hawkins RN RN ll1
--- NOTE | 2020-05-03 15:14 | EDPHYS ---
Physician Documentation [facility] Name: Ernestina Sadler Age: 24 yrs Sex: Female : 1995 Arrival Date: 05/03/2020 Time: 12:02 Bed 24 Private MD: ED Physician Jerome Sampson HPI: 05/03 13:56 This 24 yrs old Female presents to ER via Ambulatory with complaints of Back kb Pain. 13:56 The patient presents with pain that is acute, with no known mechanism of injury. The kb symptoms are located in the left subscapular area. Onset: The symptoms/episode began/occurred 2 week(s) ago. The pain does not radiate. Associated signs and symptoms: The patient has no apparent associated signs or symptoms. Severity of symptoms: At their worst the symptoms were moderate, in the emergency department the symptoms are unchanged. The patient has not experienced similar symptoms in the past. The patient has not recently seen a physician. 13:59 The problem was sustained without known cause. Modifying factors: The patient symptoms kb are alleviated by nothing, the patient symptoms are aggravated by deep breath. Pt reports pain to left mid back with inspiration. STates it has been going on intermittently for 2 weeks. Reports slight cough since March. Historical: - Allergies: 12:15 Latex, Natural Rubber; ll1 - PMHx: 12:15 None; ll1 - PSHx: 12:15 None; ll1 - Immunization history:: Flu vaccine is not up to date. - Social history:: Smoking status: Patient denies any tobacco usage or history of. ROS: 13:54 Constitutional: Negative for fever, chills, and weight loss, Cardiovascular: Negative kb for chest pain, palpitations, and edema, Respiratory: Negative for shortness of breath, cough, wheezing, and pleuritic chest pain, Abdomen/GI: Negative for abdominal pain, nausea, vomiting, diarrhea, and constipation, MS/Extremity: Negative for injury and deformity, Skin: Negative for injury, rash, and discoloration, Neuro: Negative for headache, weakness, numbness, tingling, and seizure. 13:54 Back: Positive for of the left subscapular area, pain with inspiration. Exam: 13:54 Constitutional: This is a well developed, well nourished patient who is awake, alert, kb and in no acute distress. Head/Face: Normocephalic, atraumatic. Chest/axilla: Normal chest wall appearance and motion. Nontender with no deformity. No lesions are appreciated. Cardiovascular: Regular rate and rhythm with a normal S1 and S2. No gallops, murmurs, or rubs. Normal PMI, no JVD. No pulse deficits. Respiratory: Lungs have equal breath sounds bilaterally, clear to auscultation and percussion. No rales, rhonchi or wheezes noted. No increased work of breathing, no retractions or nasal flaring. Abdomen/GI: Soft, non-tender, with normal bowel sounds. No distension or tympany. No guarding or rebound. No evidence of tenderness throughout. Back: No spinal tenderness. No costovertebral tenderness. Full range of motion. Skin: Warm, dry with normal turgor. Normal color with no rashes, no lesions, and no evidence of cellulitis. MS/ Extremity: Pulses equal, no cyanosis. Neurovascular intact. Full, normal range of motion. Neuro: Awake and alert, GCS 15, oriented to person, place, time, and situation. Cranial nerves II-XII grossly intact. Motor strength 5/5 in all extremities. Sensory grossly intact. Cerebellar exam normal. Normal gait. Vital Signs: 12:15 BP 134 / 86; Pulse 86; Resp 16; Temp 98.4; Pulse Ox 99% ; Weight 72.57 kg; Height 5 ft. ll1 4 in. (162.56 cm); Pain 9/10; 14:00 BP 118 / 86; Pulse 63; Resp 16; Pulse Ox 98% on R/A; vg1 15:00 BP 108 / 88; Pulse 70; Resp 14; Pulse Ox 99% on R/A; vg1 12:15 Body Mass Index 27.46 (72.57 kg, 162.56 cm) ll1 MDM: 13:51 Patient medically screened. kb 13:56 Data reviewed: vital signs, nurses notes. Data interpreted: Pulse oximetry: on room air kb is 99 %. Interpretation: normal. 15:12 Counseling: I had a detailed discussion with the patient and/or guardian regarding: the kb historical points, exam findings, and any diagnostic results supporting the discharge/admit diagnosis, radiology results, the need for outpatient follow up, a family practitioner, to return to the emergency department if symptoms worsen or persist or if there are any questions or concerns that arise at home. 05/03 13:09 Order name: Chest Single View XRAY; Complete Time: 15:12 kb Administered Medications: No medications were administered Disposition: 05/04 14:22 Co-signature as Attending Physician, Jerome Sampson MD I agree with the assessment and kdr plan of care. Disposition: 05/03/20 15:13 Discharged to Home. Impression: Pleurisy. - Condition is Stable. - Discharge Instructions: Pleurisy, [id number]. - Prescriptions for Ibuprofen 600 mg Oral Tablet - take 1 tablet by ORAL route every 6 hours As needed take with food; 30 tablet. - Medication Reconciliation Form, Thank You Letter, Antibiotic Education, Prescription Opioid Use form. - Follow up: Emergency Department; When: As needed; Reason: Worsening of condition. Follow up: Private Physician; When: 2 - 3 days; Reason: Recheck today's complaints, Continuance of care, Re-evaluation by your physician. Signatures: Dispatcher [employer] EDNM Talita Connelly, WILLA-C DEBT RECOVERY OFFICER-Jerome Ni MD MD kdr Garcia, Victoria, RN RN vg1 Gopi Hawkins RN RN ll1 Corrections: (The following items were deleted from the chart) 05/03 14:00 13:56 Associated signs and symptoms: Pertinent positives: kb kb 15:27 15:13 05/03/2020 15:13 Discharged to Home. Impression: Pleurisy. Condition is Stable. vg1 Forms are Medication Reconciliation Form, Thank You Letter, Antibiotic Education, Prescription Opioid Use. Follow up: Emergency Department; When: As needed; Reason: Worsening of condition. Follow up: Private Physician; When: 2 - 3 days; Reason: Recheck today's complaints, Continuance of care, Re-evaluation by your physician. kb
[2020-05-03 15:37] VITALS: TEMP 98.4
[2020-05-03 15:40] VITALS: BP 108/88; O2SAT 99
== END 2020-05-03 15:27 | disposition home or self-care (01) ==
LOC: ER 11:57
DX: R09.1 Pleurisy (principal); Z91.040 Latex allergy status; Z91.048 Other nonmedicinal substance allergy status
CPT/HCPCS: 71045; 99283

== ENCOUNTER 2021-04-16 08:26 | Emergency (ER) | payer SELFPAY ==
--- NOTE | 2021-04-16 09:48 | ER ---
Nurse's Notes [facility] Name: Ernestina Sadler Age: 25 yrs Sex: Female : 1995 Arrival Date: 04/16/2021 Time: 08:30 Bed Waiting Private MD: Diagnosis: ED Course: 04/16 08:30 Patient arrived in ED. as 08:32 Yovanny Andino PA is PHCP. cp 08:32 Jerome Sampson MD is Attending Physician. cp 09:03 Patient's name was called from ER Cycle. No response. vg1 09:46 Patient's name was called from ER Cycle. No response. Unable to locate patient. Will vg1 disposition as left without being seen by a provider. Administered Medications: No medications were administered Outcome: 09:47 Patient left the ED. vg1 10:45 Patient left the ED. vg1 Signatures: Blaire Ordoñez as Yovanny Andino PA PA cp Garcia, Victoria, RN RN vg1
== END 2021-04-16 10:45 | disposition left against medical advice (07) ==
LOC: ER 08:26
DX: Z02.89 Encounter for other administrative examinations (principal)